=== PATIENT | female | born 1990 | race Caucasian/White ===

== ENCOUNTER 2019-09-08 04:01 | Emergency (ER) | payer SELFPAY ==
[~2019-09-08] VITALS: Ht 165.1 cm; Wt 126.6 kg
[2019-09-08 04:10] VITALS: Ht 165.1 cm; Wt 126.6 kg
[2019-09-08 05:19] VITALS: BP 149/98
== END 2019-09-08 05:19 | disposition home or self-care (01) ==
LOC: ED 04:01
DX: M54.5 Low back pain (principal); M62.830 Muscle spasm of back
CPT/HCPCS: J1885

== ENCOUNTER 2020-04-29 15:33 | Emergency (ER) | payer OTHER ==
[~2020-04-29] VITALS: Ht 165.1 cm; Wt 101.6 kg
[2020-04-29 15:40] VITALS: Ht 165.1 cm; Wt 101.6 kg
[2020-04-29 17:31] LABS: BASOPHIL % 0.6 % (0.2-1.3); PLATELET COUNT 296 x10^3mcL (179-408)
[2020-04-29 17:34] LABS: RED CELL DISTRIBUTION WIDTH 16.7 % (12.3-17.7); rbc morphology (normal/abnorm) NORMAL (NORMAL)
[2020-04-29 17:58] LABS: CALCIUM 9.5 mg/dL (8.5-10.1); CARBON DIOXIDE 25.1 mmol/L (21-32); CHLORIDE SERUM 104 mmol/L (98-107); CREATININE SERUM 0.8 mg/dL (0.6-1.0); GFR1 > 60 mL/min; GLUCOSE SERUM 91 mg/dL (74-106); POTASSIUM SERUM 3.4 mmol/L (3.5-5.1); SODIUM SERUM 140 mmol/L (136-145)
[2020-04-29 18:02] LABS: ALBUMIN 3.7 g/dL (3.4-5.0); ALKALINE PHOSPHATASE 49 U/L (46-116); ALT/SGPT 22 U/L (14-59); AST/SGOT 17 U/L (15-37); BILIRUBIN DIRECT 0.09 mg/dL (0.0-0.2); BILIRUBIN TOTAL 0.3 mg/dL (0.20-1.00); LIPASE 140 IU/L (73-393); TOTAL PROTEIN, SERUM 8.2 g/dL (6.4-8.2)
[2020-04-29 18:43] VITALS: BP 114/67
== END 2020-04-29 18:56 | disposition home or self-care (01) ==
LOC: ED 15:33
PROVIDERS: Emergency Medicine
DX: R07.89 Other chest pain (principal)
CPT/HCPCS: 83880